=== PATIENT | male | born 1990 | race Two or more races ===

== ENCOUNTER 2024-04-30 07:55 | Day surgery (SDC) | payer OTHER, SELFPAY ==
--- NOTE | 2024-04-25 16:06 | ESHP_ITS ---
RE: SILVANA CRAWLEY : 1990 DATE OF ADMISSION: 04/30/2024 HISTORY OF PRESENT ILLNESS: The patient is a 33-year-old gentleman with a history of tight phimosis. He is now scheduled to have circumcision. PAST SURGICAL HISTORY: None. PAST MEDICAL HISTORY: No history of diabetes mellitus. No history of hypertension. SOCIAL HISTORY: He has two children. ALLERGIES: NONE KNOWN. MEDICATIONS: The patient is not taking any medicine. PHYSICAL EXAMINATION: HEENT: Normal. NECK: Supple. LUNGS: Clear. CARDIOVASCULAR: Heart sounds are normal. ABDOMEN: Soft without any organomegaly. No guarding. No rigidity. EXTREMITIES: Normal. GENITOURINARY: Phallus reveals tight phimosis. Testes are down in scrotum. IMPRESSION: Tight phimosis. PLAN: Circumcision. Planned procedure, risks and complications have been discussed with the patient. The patient has understood them and agreed to proceed. DT: 12:35:53 TT: 16:04:00 Ref: [id number] - TID: [id number]
[2024-04-26 07:24] VITALS: BMI 34.3
[2024-04-26 07:44] LABS: Collection Type, Urine Clean Catch
[2024-04-26 09:11] LABS: Basophils # (Auto) 0.1 Thou/mm3 (0.0-0.2); Basophils % (Auto) 1 % (0-2.5); Eosinophils # (Auto) 0.4 Thou/mm3 (0.0-0.5); Eosinophils % (Auto) 6 % (0-10); Hematocrit 43.7 % (41.0-53.0); Hemoglobin 15.5 g/dL (13.5-16.0); Immature Granulocytes % (Auto) 1 % (0-0); Immature Granulocytes Auto 0.05 Thou/mm3 (0.00-0.00); Lymphocytes # (Auto) 2.3 Thou/mm3 (1.0-4.8); Lymphocytes % (Auto) 32 % (10-50); Mean Corpuscular HGB Conc 35.5 g/dl (31.0-37.0); Mean Corpuscular Hemoglobin 29.7 pg (25.0-35.0); Mean Corpuscular Volume 84 fL (80-100); Monocytes # (Auto) 0.5 Thou/mm3 (0.0-0.8); Monocytes % (Auto) 7 % (0-12); Neutrophils # (Auto) 3.8 Thou/mm3 (1.8-7.7); Neutrophils % (Auto) 53 % (37-80); Nucleated Red Blood Cell % 0 /100 WBC (0); Platelet Count 298 Thou/mm3 (140-440); RDW Standard Deviation 39.8 fL (35.1-43.9); Red Blood Count 5.22 Miln/mm3 (4.50-5.90); White Blood Count 7.1 Thou/mm3 (3.8-10.6)
[2024-04-26 09:21] LABS: Anion Gap 8 (7-16); BUN/Creatinine Ratio 13 Ratio (12-20); Blood Urea Nitrogen 13 mg/dL (9-23); Calcium 9.6 mg/dL (8.3-10.6); Carbon Dioxide 29.5 mMol/L (20.0-31.0); Chloride 105 mMol/L (98-107); Estimated Creatinine Clearance 119.6 mL/min (>60); Glucose 98 mg/dL (74-106); Osmolality,Calculated 283 (275-295); Potassium 4.1 mMol/L (3.4-5.1); Sodium 142 mMol/L (136-145); eGFR > 60 See Note
[2024-04-26 09:31] LABS: Bilirubin,Urine Negative (Negative); Blood,Urine Negative (Negative); Clarity,Urine Clear (Clear/Hazy); Color,Urine Lt-Yellow (Lt Yel-Yel); Glucose, Urine Negative (Negative); Ketones,Urine Negative (Negative); Leukocyte Esterase,Urine Negative (Negative); Nitrite,Urine Negative (Negative); Protein,Urine Negative (Neg - Trace); RBC,Urine 2 /hpf (0-3); Specific Gravity,Urine 1.025 (1.001-1.035); Squamous Epithelial Cell,Urine < 1 /hpf (0-5); Urobilinogen,Urine Negative mg/dL (0.0-1.0); WBC,Urine 1 /hpf (0-5)
[2024-04-30] VITALS (8 sets, daily range): BP systolic 107–155; BP diastolic 65–102; PULSE 71–94; RESP 13–19; TEMP 36.1–36.7; O2SAT 97–98; BMI 33.9
--- NOTE | 2024-04-30 09:59 | EKG_ITS ---
[facility] Test Date: 2024-04-30 Pat Name: SILVANA CRAWLEY Department: Room: - Gender: Male [employer]: GENEVA : 1990 Requested By: Bushra Kwon Order Number: [id number] Reading MD: Bushra Kwon Measurements Intervals [place] Rate: 75 P: 21 DE: 150 QRS: 48 QRSD: 89 T: 17 QT: 386 QTc: 433 Interpretive Statements SINUS RHYTHM No previous ECG available for comparison /store/S0/[id number]/ecg/[id number].pdf
--- NOTE | 2024-04-30 10:15 | CHAP ---
Patient was just about to get an in-room EKG. I spoke briefly to him and prayed with him.
--- NOTE | 2024-04-30 11:27 | SUR.PHASEI ---
1127: Pt. arrived with oral airway in place, vitals stable, breathing unlabored, no signs of distress, dressing to penis CDI, no active bleed noted, report received from Darrian CARVALHO and Bushra PINON.
--- NOTE | 2024-04-30 12:30 | SUR.PHASEII ---
1230: Pt. AAOx4, vitals stable, breathing unlabored, no complaint of pain or nausea, dressing to penis CDI, no active bleed noted, pt. tolerated sips of water well, pt. ambulated to wheelchair with steady gait and no assist, no complications. Gave discharge instructions to the pt. and his ride, both verbalized understanding and had no further questions. Pt. left with all personal belongings.
--- NOTE | 2024-04-30 15:45 | ESOP_ITS ---
RE: SILVANA CRAWLEY : 1990 DATE OF OPERATION: 04/30/2024 PREOPERATIVE DIAGNOSES: Phimosis and history of balanitis. POSTOPERATIVE DIAGNOSES: Phimosis and history of balanitis. PROCEDURE PERFORMED: Circumcision. ANESTHESIA: General. INDICATION: The patient is a 33-year-old gentleman with history of phimosis and balanitis. He wishes to have circumcision done. On examination, patient had phimosis with history of recurrent balanitis. The patient was scheduled to have circumcision. Planned procedure, risks and complications have been discussed with the patient. The patient understood them and agreed to proceed. DESCRIPTION OF PROCEDURE: After the patient was brought to the operating table under adequate general anesthesia in supine position, parts were prepped and draped in the usual fashion. Circumcision was then carried out in a standard fashion by excising the foreskin at the aragon glandis in a circumferential manner. Complete hemostasis was obtained by using electrocoagulation. Skin was reapproximated back by placing interrupted sutures of 3-0 chromic catgut. Local anesthetic was injected at the base of the penis. Sterile dressing was then applied. The patient was then transferred to the recovery room in a satisfactory condition having tolerated the entire procedure well. Sponge count and needle count at the end of the procedure was found to be correct. Estimated blood loss was approximately 5 mL. DT: 11:42:25 TT: 15:42:00 Ref: [id number] - TID: [id number]
== END 2024-04-30 12:30 | disposition home or self-care (01) ==
PROVIDERS: PCP Family Medicine; Referring Provider Surgery; Visit Provider Surgery
PROC: (CPT 54161; principal; 2024-04-30 10:00)
DX: N47.1 Phimosis (principal); Z01.810 Encounter for preprocedural cardiovascular examination
CPT/HCPCS: 54161; 36415; 80048; 81001; 85025; 93005; A4217; A4649; J0131; J1100; J1885; J2250; J2405; J2704; J3010; J3490; A9270; J0665